=== PATIENT | male | born 1980 | race Caucasian/White ===

== ENCOUNTER 2017-06-09 23:50 | Emergency (ER) | payer MEDICAID, OTHER ==
--- NOTE | 2017-06-10 00:14 | EDM.PDOC ---
ED HPI GENERAL MEDICAL PROBLEM - General Chief Complaint: Upper Extremity Injury/Pain Stated Complaint: PAIN LT ARM Time Seen by Provider: 06/10/17 00:11 - History of Present Illness INITIAL COMMENTS - FREE TEXT/NARRATIVE: HISTORY AND PHYSICAL: History of present illness: Patient 37-year-old male who presents from the snf who is in custody with chief complaint of right arm discomfort he states his history of degenerative joint disease he denies any trauma. Review of systems: As per history of present illness and below otherwise all systems reviewed and negative. Past medical history: As per history of present illness and as reviewed below otherwise noncontributory. Surgical history: As per history of present illness and as reviewed below otherwise noncontributory. Social history: No reported history of drug or alcohol abuse. Family history: As per history of present illness and as reviewed below otherwise noncontributory. Physical exam: HEENT: Atraumatic, normocephalic, pupils reactive, negative for conjunctival pallor or scleral icterus, mucous membranes moist, throat clear, neck supple, nontender, trachea midline. Lungs: Clear to auscultation, breath sounds equal bilaterally, chest nontender. Heart: S1S2, regular, negative for clicks, rubs, or JVD. Abdomen: Soft, nondistended, nontender. Negative for masses or hepatosplenomegaly. Negative for costovertebral tenderness. Pelvis: Stable nontender. Genitourinary: Deferred. Rectal: Deferred. Extremities: Atraumatic, negative for cords or calf pain. Neurovascular unremarkable. Neuro: Awake, alert, oriented. Cranial nerves II through XII unremarkable. Cerebellum unremarkable. Motor and sensory unremarkable throughout. Exam nonfocal. Diagnostics: X-ray cervical spine Therapeutics: None Impression: #1 right arm pain #2 history of degenerative joint disease Definitive disposition and diagnosis as appropriate pending reevaluation and review of above. Right Neck Pain Score (Numeric/FACES): 8 - Related Data Allergies Allergy/AdvReac Type Severity Reaction Status Date / Time No Known Allergies Allergy Verified 06/09/17 23:55 Home Meds: Home Meds Levothyroxine 75 mcg PO ACBREAKFAST 06/09/17 [History] Past Medical History - Past Health History Medical/Surgical History: Denies Medical/Surgical History Endocrine/Metabolic History: Reports: Hypothyroidism - Infectious Disease History Infectious Disease History: Reports: Chicken Pox Social & Family History - Family History Family Medical History: Noncontributory - Tobacco Use Smoking Status *Q: Never Smoker Second Hand Smoke Exposure: No - Caffeine Use Caffeine Use: Reports: Coffee Caffeine Use Comment: 1cup/day - Recreational Drug Use Recreational Drug Use: No Review of Systems - Review of Systems Review Of Systems: ROS reveals no pertinent complaints other than HPI. ED EXAM, GENERAL - Physical Exam Exam: See Below (See dictation) Course - Vital Signs Last Recorded V/S: Last Vital Signs Temp 36.3 C 06/09/17 23:52 Pulse 74 06/09/17 23:52 Resp 18 06/09/17 23:52 BP 112/85 06/09/17 23:52 Pulse Ox 98 06/09/17 23:52 - Orders/Labs/Meds Orders: Active Orders 24 hr Category Date Time Status C-Spine [Cervical Spine 1V] [CR] Stat Exams 06/09/17 23:58 Stop Req C-Spine [Cervical Spine 2V or 3V] [CR] Stat Exams 06/10/17 00:02 Ordered Departure - Departure Time of Disposition: 00:13 Disposition: Home, Self-Care 01 Condition: Good Clinical Impression: Arm pain, Medical clearance for incarceration - Discharge Information Forms: ED Department Discharge Additional Instructions: e following information is given to patients seen in the emergency department who are being discharged to home. This information is to outline your options for follow-up care. We provide all patients seen in our emergency department with a follow-up referral. The need for follow-up, as well as the timing and circumstances, are variable depending upon the specifics of your emergency department visit. If you don't have a primary care physician on staff, we will provide you with a referral. We always advise you to contact your personal physician following an emergency department visit to inform them of the circumstance of the visit and for follow-up with them and/or the need for any referrals to a consulting specialist. The emergency department will also refer you to a specialist when appropriate. This referral assures that you have the opportunity for followup care with a specialist. All of these measure are taken in an effort to provide you with optimal care, which includes your followup. Under all circumstances we always encourage you to contact your private physician who remains a resource for coordinating your care. When calling for followup care, please make the office aware that this follow-up is from your recent emergency room visit. If for any reason you are refused follow-up, please contact the [facility] emergency department at and asked to speak to the emergency department charge nurse. LYUB[facility] [place] [id number] Follow-up primary medical doctor/clinic as discussed Motrin or Tylenol as directed return as needed as discussed - My Orders Last 24 Hours: My Active Orders 06/09/17 23:58 C-Spine [Cervical Spine 1V] [CR] Stat 06/10/17 00:02 C-Spine [Cervical Spine 2V or 3V] [CR] Stat - Assessment/Plan Last 24 Hours: My Active Orders 06/09/17 23:58 C-Spine [Cervical Spine 1V] [CR] Stat 06/10/17 00:02 C-Spine [Cervical Spine 2V or 3V] [CR] Stat
[2017-06-10 01:38] VITALS: BP 115/76
--- NOTE | 2017-06-10 13:59 | CR ---
EXAM DATE: 06/09/17 PATIENT'S AGE: 37 Patient: FAY VIEIRA Facility: [place], [place] Site . Site : 1980 Study: XRay Spine Cervical [id number]/10/2017 12:48:31 AM Ordering Physician: Doctor Osorio Final Report: INDICATION: Right-sided neck pain TECHNIQUE: Five views of the cervical spine. COMPARISON: None available FINDINGS: There is straightening of the cervical lordosis. The vertebral body heights and disc spaces are preserved. The facets are anatomically aligned. The precervical soft tissues are unremarkable. IMPRESSION: Straightening of the cervical spine. No gross fracture seen. Dictated by Fernando Davidson MD @ 06/10/2017 1:24:41 AM Dictated by: Fernando Davidson MD @ 06/10/2017 01:24:47 (Electronic Signature) Report Signed by Proxy. JUSTIN
== END 2017-06-10 01:30 ==
LOC: MW.ED 23:50
DX: M79.601 Pain in right arm (principal); M19.90 Unspecified osteoarthritis, unspecified site; E03.9 Hypothyroidism, unspecified
CPT/HCPCS: 72040; 72040-26; 99282; 99283-25